=== PATIENT | male | born 1980 | race Two or more races ===

== ENCOUNTER 2018-02-24 22:54 | Inpatient (IN) | payer OTHER ==
[~2018-02-24] VITALS: Ht 172.7 cm; Wt 79.8 kg
[2018-02-24] MEDS ORDERED: TETRACAINE HCL/PF 0.5% UD 2 ML BOTTLE ONE (23:21)
[2018-02-24] MEDS ORDERED: LORAZEPAM INJ 2 MG/ML VIAL IV ONE (23:30)
[2018-02-24] MEDS ORDERED: TETRACAINE HCL/PF 0.5% UD 2 ML BOTTLE LEFTEYE ONE (23:30)
[2018-02-24] MEDS ORDERED: IV NS 0.9% 1,000 ML BAG IV ONE (23:30)
--- NOTE | 2018-02-24 23:30 | NUR ---
ADDENDUM: IV END TIMES: NS 1 LITER WIDE OPEN: START TIME: 2330 PM ;END TIME 0030 (02/25/2018); PIV # 18 LAC KEPPRA 500 MG : START TIME: 0030 (02/25/2018); END TIME 0130 (02/25/2018); PIV # 18 LAC
--- NOTE | 2018-02-24 23:30 | NUR ---
BIBRA39/[employer] FOR OTB C/O WITNESSED SEIZURE LASTING APPROX 30 SEC. NO HX OF SEIZURES. PER RA WITHDRAWAL FROM ETOH. A/O X 4. PT HAS LEFT EYE HEMATOMA AND EYE IS CLOSED. PT PLACED IN BED AND TOLERATED WELL. PT PLACED ON MONITOR WITH VS WNL. PT HAS HANDCUFF ON RIGHT ARM AND [employer] AT BEDSIDE. AWAITING MD MUÑIZ.
[2018-02-24 23:34] LABS: BASOPHILS # (AUTO) 0.1 /CMM (0.0-0.2); MONOCYTES # (AUTO) 0.5 /CMM (0.1-1.30); NEUTROPHILS # (AUTO) 3.3 /CMM (1.8-8.9)
[2018-02-24 23:36] LABS: CALCIUM, SERUM 8.7 mg/dL (8.5-10.1); CREATININE 0.8 mg/dL (0.6-1.3); POTASSIUM 3.9 mmol/L (3.5-5.1)
[2018-02-24] MEDS ORDERED: LORAZEPAM INJ 2 MG/ML VIAL ONE (23:38)
[2018-02-24 23:39] LABS: BASOPHILS % (AUTO) 1.2 % (0.0-2.0); EOSINOPHILS % (AUTO) 0.3 % (0.0-6.0); HEMATOCRIT 33 % (39-51); LYMPHOCYTES # (AUTO) 0.3 /CMM (0.8-4.8); MEAN CORPUSCULAR HGB CONC 30 g/dl (31.0-36.0); MEAN CORPUSCULAR VOLUME 63 fL (80-96); NEUTROPHILS % (AUTO) 79.5 % (43.0-81.0); PLATELET COUNT (AUTO) 101 /CMM (150-450); RED BLOOD CELL COUNT(AUTO) 5.23 MIL/uL (4.5-6.0); WHITE BLOOD COUNT (AUTO) 4.2 K/uL (4.3-11.0)
[2018-02-24] MEDS ORDERED: CT SWABBABLE VALVE TRANS SET 1 EA INFUS.SET MC ONE (23:46)
[2018-02-24] MEDS ORDERED: IV NS 0.9% 250 ML IV ONE (23:46)
[2018-02-24] MEDS ORDERED: IOHEXOL-300 100 ML VIAL IV ONE (23:46)
[2018-02-25] VITALS (11 sets, daily range): BP systolic 110–142; BP diastolic 64–92
[2018-02-25 00:19] LABS: BILIRUBIN,DIRECT 1.5 mg/dL (0.0-0.2)
[2018-02-25 00:20] LABS: ALBUMIN 3.6 g/dL (3.4-5.0); TOTAL PROTEIN, SERUM 7.9 g/dL (6.4-8.2)
[2018-02-25] MEDS ORDERED: IV NS 0.9% 250 ML IV ONE (00:27)
[2018-02-25] MEDS ORDERED: IOHEXOL-350 100 ML VIAL IV ONE (00:27)
[2018-02-25] MEDS ORDERED: LEVETIRACETAM (500MG) 500 MG in IV NS 0.9% 100 ML IV SCH ×2 (00:30→12:30)
[2018-02-25] MEDS ORDERED: LEVETIRACETAM (500MG) 500 MG/5 ML VIAL IV ONE (00:34)
--- NOTE | 2018-02-25 00:38 | NUR ---
PT LEFT FOR CT
[2018-02-25 00:48] LABS: NEUTROPHILS % (MANUAL) 83 (42-76)
[2018-02-25 00:49] LABS: LYMPHOCYTES % (MANUAL) 6 % (16-48); MONOCYTES % (MANUAL) 11 % (0-11.0)
--- NOTE | 2018-02-25 00:49 | NUR ---
PT RETURNED FROM CT.
--- NOTE | 2018-02-25 03:00 | NUR ---
EPIC CABLE INSPECTOR PAGED
--- NOTE | 2018-02-25 03:15 | NUR ---
ADMITTING NOTES RECEIVED PT FROM ER VIA TACO ALCARAZ. ON ROOM AIR, NO SOB NOTED. DENIES ANY PAIN AT THIS TIME. ACCOMPANIED BY [employer], PT IS UNDER CUSTODY OF [employer]. SINUS RHYTHM ON TELEMONITOR. WITH INTACT AND PATENT LEFT AC G18. NOTED HEMATOMA ON L PERIORBITAL. VS TAKEN AND ASSESSMENT DONE. ORIENTED TO ROOM AND USE OF CALL LIGHT. SAFETY MEASURES AND SEIZURE PRECAUTION IN PLACED. CALL LIGHT WITHIN EASY REACH. WILL CONT TO MONITOR PER ENDORSEMENT FROM MARY OROZCO RN, PT RECEIVED 1BAG FFP. 2 BAGS OF PLATELET TO BE INFUSED ONCE AVAILABLE.
[2018-02-25] MEDS ORDERED: ACETAMINOPHEN 325 MG TABLET PO PRN (03:30)
[2018-02-25] MEDS ORDERED: LABETALOL HCL IV 100MG VIAL IV PRN (03:30)
[2018-02-25] MEDS ORDERED: MAG HYDROX/AL HYDROX/SIMETH 30 ML UDC PO PRN (03:30)
[2018-02-25] MEDS ORDERED: MORPHINE SULFATE INJ 2 MG/ML DISP.SYRIN IV PRN (03:30)
[2018-02-25] MEDS ORDERED: ONDANSETRON HCL/PF 4 MG/2 ML VIAL IVP PRN (03:30)
[2018-02-25] MEDS ORDERED: Z GUARD REMEDY 2 OZ OINT TP PRN (03:30)
[2018-02-25] MEDS ORDERED: MAGNESIUM HYDROXIDE 30 ML UDC PO PRN (03:30)
--- NOTE | 2018-02-25 03:30 | NUR ---
RN NOTES CALLED [facility], PAGED SERJIO PRECIADO FOR ADMITTING ORDERS [phone] RECEIVED CALL BACK FROM SERJIO PRECIADO, CLARIFIED IF OK TO GIVE 2 BAGS PLATELETS, PER CORPORATE TREASURY ANALYST, "OK TO GIVE", PT MADE AWARE AND AGREED. ORDERS NOTED AND CARRIED OUT
--- NOTE | 2018-02-25 03:30 | NUR ---
ACCEPTED BY [facility] DR. SERRANO ALSO ACCEPTED THE PATIENT FOR ANNABELLA ADMISSION
[2018-02-25] MEDS ORDERED: LORAZEPAM 1 MG TABLET PO PRN (04:00)
[2018-02-25] MEDS: IV NS 0.9% 1,000 ML IV PRN ×2 (04:04→23:28)
[2018-02-25] MEDS ORDERED: NIMODIPINE (30MG) 30 MG CAPSULE ONE (05:14)
[2018-02-25] MEDS: NIMODIPINE (30MG) 30 MG CAPSULE PO SCH ×6 (05:22→23:28)
[2018-02-25 06:38] LABS: BASOPHILS % (AUTO) 1.1 % (0.0-2.0); HEMATOCRIT 28 % (39-51); HEMOGLOBIN 8.5 g/dL (13.5-17.5); LYMPHOCYTES # (AUTO) 0.5 /CMM (0.8-4.8); LYMPHOCYTES % (AUTO) 14.7 % (20.0-44.0); MEAN CORPUSCULAR HGB CONC 31 g/dl (31.0-36.0); MEAN CORPUSCULAR VOLUME 63 fL (80-96); MONOCYTES # (AUTO) 0.8 /CMM (0.1-1.30); MONOCYTES % (AUTO) 21.9 % (2.0-12.0); NEUTROPHILS # (AUTO) 2.2 /CMM (1.8-8.9); NEUTROPHILS % (AUTO) 62.3 % (43.0-81.0); PLATELET COUNT (AUTO) 86 /CMM (150-450); RED BLOOD CELL COUNT(AUTO) 4.37 MIL/uL (4.5-6.0); WHITE BLOOD COUNT (AUTO) 3.5 K/uL (4.3-11.0)
[2018-02-25 06:52] LABS: ALBUMIN 3.2 g/dL (3.4-5.0); CALCIUM, SERUM 8.4 mg/dL (8.5-10.1); CREATININE 0.6 mg/dL (0.6-1.3); POTASSIUM 3.5 mmol/L (3.5-5.1)
--- NOTE | 2018-02-25 07:05 | NUR ---
RN NOTES RECEIVED PT ON BED, A/Ox4,NO NEUROLOGICAL DEFICIT NOTED EXCEPT L EYE BRUISING AND EDEMA NOTED,LEFT PUPIL SLUGGISH TO REACT. NO SZ ACTIVITIES NOTED ON RA , RESPIRATION EVEN AND UNLABORED, NO SOB NOTED, ON TELE HR IN 90'S , SR ,L AC IV SITE G 18 CLEAN , DRY AND INTACT, WITH NS AT 75CC/HR RUNNING , SR UP x3, CALL LIGHT WITHIN EASY REACH, BED LOCKED AND IN LOWEST POSITION , CONTINUE TO MONITOR ,
--- NOTE | 2018-02-25 07:07 | NUR ---
RN NOTES PT IN STABLE CONDITION. NO ACUTE CHANGES THROUGHOUT SHIFT. NO SEIZURE EPISODE NOTED. SAFETY MEASURES AND SEIZURE PRECAUTION MAINTAINED. ALL NEEDS ANTICIPATED. ENDORSED TO AM SHIFT RN FOR CONCHA
[2018-02-25 08:16] LABS: BAND % (MANUAL) 4 % (0.0-5.0); EOSINOPHILS % (MANUAL) 1 % (0-4); LYMPHOCYTES % (MANUAL) 16 % (16-48); MONOCYTES % (MANUAL) 13 % (0-11.0); NEUTROPHILS % (MANUAL) 66 (42-76)
[2018-02-25] MEDS: DOCUSATE SODIUM 100 MG CAPSULE PO SCH ×2 (08:29→17:08)
[2018-02-25] MEDS: FAMOTIDINE (20 MG) 20 MG TABLET PO SCH (08:29)
[2018-02-25 08:30] LABS: THYROID STIMULATING HORMONE 0.717 uIU/mL (0.358-3.74)
--- NOTE | 2018-02-25 12:00 | NUR ---
RN NOTES PT STABLE , OUT OF THE BED TO BATHROOM AT TIMES VSS STABLE, NO DISTRESS NOTED .
[2018-02-25] MEDS: LEVETIRACETAM (250 MG) 250 MG TABLET PO SCH ×2 (12:49→20:04)
--- NOTE | 2018-02-25 18:20 | NUR ---
RN NOTES PT REMAINS STABLE, NS AT 75CC/HR RUNNING VIA L AC IV SITE , NO SINGICNAT CHANGES NOTED ON THIS SHIFT , WILL ENDOSE TO CROP DUSTER HELPER NURSE FOR CONTINUITY OF CARE
[2018-02-25] MEDS ORDERED: PROTHROMBIN COMPLEX CONCENTR IV ONE (18:30)
[2018-02-25] MEDS ORDERED: WATER FOR INJECTION STERILE IV ONE (18:30)
--- NOTE | 2018-02-25 20:38 | NUR ---
TD RN NOTES RECEIVED PT ON BED. A/O X 4. ON ROOM AIR SATURATING WELL. ON TELE MONITOR SR. IV ACCESS LAC G18 WITH NS @ 75CC/HR, IV ACCESS PATENT AND INTACT. NO SIGNS OF ACTIVE BLEEDING. HEAD OF BED ELEVATED. SIDE RAILS UP. CALL LIGHT WITHIN REACH. BED ALARM ON. WILL CONTINUE TO MONITOR PT CLOSELY.
--- NOTE | 2018-02-25 22:00 | NUR ---
TD RN NOTES PT LIVING ALONE CANT PROVIDE FACTOR 8 MEDICINE. PER PT HE IS LIVING ALONE. CALLED PHARMACY. PER PHARMACY ORDER A AGRICULTURAL RESEARCH TECHNOLOGIST CONSULT.
--- NOTE | 2018-02-25 23:22 | NUR ---
TD RN NOTES PT REFUSED NEUROLOGICAL ASSESSMENT. PER PT HE WANTS TO SLEEP. EXPLAINED RISK AND BENEFITS. PT STILL REFUSED. WILL MONITOR PT CLOSELY.
[2018-02-26] VITALS (7 sets, daily range): BP systolic 115–138; BP diastolic 59–87
--- NOTE | 2018-02-26 00:58 | NUR ---
TD RN NOTES SLIGHT BLEEDING NOTED AT PT IV ACCESS. APPLIED PRESSURE DRESSING AND ICE COMPRESS. BLEEDING CONTROLLED. PRESSURE DRESSING IN PLACED AND INTACT, WILL MONITOR PT BLEEDING CLOSELY.
[2018-02-26] MEDS: NIMODIPINE (30MG) 30 MG CAPSULE PO SCH ×5 (03:36→20:30)
--- NOTE | 2018-02-26 07:00 | NUR ---
RN NOTES RECEIVED PT A/OX4. RESTING COMFORTABLY,ON ROOM AIR, NO SOB NOTED. DENIES ANY PAIN AT THIS TIME. SINUS RHYTHM ON TELE MONITOR WITH INTACT AND PATENT RIGHT AC G22. NS@75CC/HOUR INFUSING , NOTED HEMATOMA ON L PERIORBITAL. V/S TAKEN AND ASSESSMENT DONE. ORIENTED TO ROOM AND USE OF CALL LIGHT. SAFETY MEASURES AND SEIZURE PRECAUTION IN PLACED. CALL LIGHT WITHIN EASY REACH. WILL CONT TO MONITOR.
--- NOTE | 2018-02-26 07:06 | NUR ---
TD RN NOTES NO ACUTE CHANGES NOTED THROUGHOUT THE SHIFT. PROVIDED COMFORT AND SAFETY. DUE MEDS GIVEN. WILL ENDORSE TO THE AM NURSE FOR CONTINUITY OF CARE.
[2018-02-26 07:39] LABS: BASOPHILS # (AUTO) 0.1 /CMM (0.0-0.2); BASOPHILS % (AUTO) 2.3 % (0.0-2.0); EOSINOPHILS % (AUTO) 2.9 % (0.0-6.0); HEMATOCRIT 31 % (39-51); HEMOGLOBIN 9.5 g/dL (13.5-17.5); LYMPHOCYTES # (AUTO) 0.9 /CMM (0.8-4.8); LYMPHOCYTES % (AUTO) 34.1 % (20.0-44.0); MEAN CORPUSCULAR HGB CONC 30 g/dl (31.0-36.0); MEAN CORPUSCULAR VOLUME 64 fL (80-96); MONOCYTES # (AUTO) 0.5 /CMM (0.1-1.30); MONOCYTES % (AUTO) 17.1 % (2.0-12.0); NEUTROPHILS # (AUTO) 1.2 /CMM (1.8-8.9); NEUTROPHILS % (AUTO) 43.6 % (43.0-81.0); PLATELET COUNT (AUTO) 93 /CMM (150-450); RED BLOOD CELL COUNT(AUTO) 4.88 MIL/uL (4.5-6.0); WHITE BLOOD COUNT (AUTO) 2.6 K/uL (4.3-11.0)
[2018-02-26 07:43] LABS: CALCIUM, SERUM 8.1 mg/dL (8.5-10.1); CREATININE 0.6 mg/dL (0.6-1.3); POTASSIUM 3.2 mmol/L (3.5-5.1)
[2018-02-26 07:49] LABS: ALBUMIN 3.1 g/dL (3.4-5.0); BILIRUBIN,DIRECT 1.4 mg/dL (0.0-0.2); BILIRUBIN,TOTAL 3.5 mg/dL (0.2-1.0); MAGNESIUM 1.9 mg/dL (1.8-2.4); PHOSPHORUS 3.1 mg/dL (2.5-4.9); TOTAL PROTEIN, SERUM 6.7 g/dL (6.4-8.2)
[2018-02-26 08:07] LABS: THYROID STIMULATING HORMONE 1.954 uIU/mL (0.358-3.74)
[2018-02-26] MEDS: LEVETIRACETAM (250 MG) 250 MG TABLET PO SCH ×2 (08:26→20:30)
[2018-02-26] MEDS: FOLIC ACID 1 MG TABLET PO SCH (08:26)
[2018-02-26] MEDS: FAMOTIDINE (20 MG) 20 MG TABLET PO SCH (08:26)
[2018-02-26] MEDS: DOCUSATE SODIUM 100 MG CAPSULE PO SCH ×2 (08:26→16:26)
[2018-02-26 09:46] LABS: LYMPHOCYTES % (MANUAL) 27 % (16-48); NEUTROPHILS % (MANUAL) 59 (42-76); REACTIVE LYMPHOCYTES 14 % (0-0)
--- NOTE | 2018-02-26 11:08 | NUR ---
CHARGE NOTES TRANSFER TO TELE PER DR. BURR
[2018-02-26] MEDS: POTASSIUM CHLORIDE 20 MEQ TAB.PRT.SR PO SCH ×2 (11:13→12:30)
--- NOTE | 2018-02-26 13:26 | NUR ---
SW received a social service consult from pharmacy requesting for SW to go to pt's home to get his Factor VIII from home since pt. resides alone. SW spoke to pt's HYACINTH Denise and informed her that it is against protocol for SW to go to pt's home. HYACINTH Denise informed SW that they have reached out to pt's family and left a voicemail message.
[2018-02-26] MEDS ORDERED: K PHOS NEUTRAL 250 MG TABLET PO ONE (13:30)
--- NOTE | 2018-02-26 14:00 | NUR ---
RN NOTES LEFT A MESSAGES FOR PT'S NEPHEW TO BRING PT'S FACTOR 8 INFUSION FROM HOME , NO RETUNE CALL YET , PHARMACY NOTIFED .
--- NOTE | 2018-02-26 18:37 | NUR ---
RN NOTES PT STABLE, NO RETURN CALL FROM FAMILY REGARDING FACTOR 8 IV INFUSION . PT STATED HE HAS IT AT HOME AND DOES HIS OWN INFUSION AT HOME , AND HAS NO ONE TO BRING IT FOR HIM FROM HOME , PHARMACY NOTIFED . SATHISH ENDOSE TO COMPOSITE ENGINEER NURSE FOR CONTINUITY OF CARE .
[2018-02-26] MEDS: IV NS 0.9% 1,000 ML IV PRN (18:41)
[2018-02-27] VITALS (8 sets, daily range): BP systolic 125–140; BP diastolic 74–87
[2018-02-27] MEDS: HYDROCODONE/APAP 5/325MG 1 EACH TABLET PO PRN ×2 (00:15→08:18)
[2018-02-27] MEDS: NIMODIPINE (30MG) 30 MG CAPSULE PO SCH ×5 (00:52→16:50)
[2018-02-27] MEDS: IV NS 0.9% 1,000 ML IV PRN (06:02)
[2018-02-27 07:32] LABS: BASOPHILS # (AUTO) 0.1 /CMM (0.0-0.2); BASOPHILS % (AUTO) 2.5 % (0.0-2.0); EOSINOPHILS % (AUTO) 5.5 % (0.0-6.0); HEMATOCRIT 33 % (39-51); LYMPHOCYTES # (AUTO) 0.8 /CMM (0.8-4.8); LYMPHOCYTES % (AUTO) 29.7 % (20.0-44.0); MEAN CORPUSCULAR HGB CONC 30 g/dl (31.0-36.0); MEAN CORPUSCULAR VOLUME 64 fL (80-96); MONOCYTES # (AUTO) 0.5 /CMM (0.1-1.30); MONOCYTES % (AUTO) 17.7 % (2.0-12.0); NEUTROPHILS # (AUTO) 1.2 /CMM (1.8-8.9); NEUTROPHILS % (AUTO) 44.6 % (43.0-81.0); PLATELET COUNT (AUTO) 78 /CMM (150-450); RED BLOOD CELL COUNT(AUTO) 5.19 MIL/uL (4.5-6.0); WHITE BLOOD COUNT (AUTO) 2.8 K/uL (4.3-11.0)
[2018-02-27 07:51] LABS: CALCIUM, SERUM 8.3 mg/dL (8.5-10.1); CREATININE 0.6 mg/dL (0.6-1.3); POTASSIUM 3.3 mmol/L (3.5-5.1)
[2018-02-27] MEDS: DOCUSATE SODIUM 100 MG CAPSULE PO SCH ×2 (08:17→16:53)
[2018-02-27] MEDS: FAMOTIDINE (20 MG) 20 MG TABLET PO SCH (08:18)
[2018-02-27] MEDS: FOLIC ACID 1 MG TABLET PO SCH (08:18)
[2018-02-27] MEDS: LEVETIRACETAM (250 MG) 250 MG TABLET PO SCH (08:18)
[2018-02-27 08:23] LABS: BASOPHILS % (MANUAL) 1 % (0.0-2.0); EOSINOPHILS % (MANUAL) 6 % (0-4); LYMPHOCYTES % (MANUAL) 27 % (16-48); MONOCYTES % (MANUAL) 20 % (0-11.0); NEUTROPHILS % (MANUAL) 46 (42-76)
[2018-02-27] MEDS ORDERED: POTASSIUM CHLORIDE 20 MEQ TAB.PRT.SR PO ONE (09:30)
[2018-02-27] MEDS: HYDROMORPHONE INJ 0.5 MG/0.5 ML SYRINGE IV PRN ×2 (10:48→17:21)
--- NOTE | 2018-02-27 11:00 | NUR ---
RN NOTE PT'S FAMILY CONTACTED AND REQUESTED TO BRING HIS FACTOR VIII FROM HOME. FAMILY VISITED AND BROUGHT FACTOR 8 AND IT'S BEEN BROUGHT TO PHARMACY.
[2018-02-27 12:10] LABS: *SPE A/G RATIO 0.9 (0.7-1.7); *SPE ALBUMIN 3.1 g/dL (2.9-4.4); *SPE ALPHA-1-GLOBULIN 0.2 g/dL (0.0-0.4); *SPE ALPHA-2-GLOBULIN 0.5 g/dL (0.4-1.0); *SPE BETA GLOBULIN 0.9 g/dL (0.7-1.3); *SPE GLOBULIN, TOTAL 3.3 g/dL (2.2-3.9); *SPE M-SPIKE Not Observed g/dL (Not Observed); *SPEGAMMA GLOBULIN 1.7 g/dL (0.4-1.8); IMMUNOGLOBULIN A, SERUM 287 mg/dL (90-386); IMMUNOGLOBULIN G, SERUM 1706 mg/dL (700-1600); IMMUNOGLOBULIN M, SERUM 231 mg/dL (20-172)
--- NOTE | 2018-02-27 13:47 | NUR ---
SW met with pt. bedside. Pt. is alert and oriented x 4. Pt. was sitting on his bed watching TV. Pt. is friendly and cooperative with SW. Pt's left eye is closed and bruised. SW inquired with pt. as to how he acquired the bruise. Pt. stated he was fixing a car and asked him nephew to give him the tool, however the nephew dropped the tool and it fell on pt's eye. Pt. initially came to [facility] by [employer] due to suffering a seizure in group home. Pt. ended up in group home for a DUI. Once admitted to [facility] pt. was released from custody and has a court date next month. Pt. states he drinks alcohol socially and denies any drugs or marijuana use. Pt. has a diagnosis of Hemophilia and takes factor VIII medication. Pt's medication was at home, however his parents did bring his medication today. Pt. resides with his parents at [address] [place] [address], [address] [place] [address]. Pt's emergency contact is his mother Megan Chanel . Pt. is currently unemployed. No other social service needs are requested at this time. SW is available, if needed.
[2018-02-27] MEDS ORDERED: SOD FERRIC GLUC 125 MG in IV NS 0.9% 100 ML IV SCH (14:00)
[2018-02-27] MEDS ORDERED: [UNRECOGNIZED DRUG - OTHER] IV ONE (17:00)
[2018-02-27] MEDS ORDERED: ANTIHEMOPHILIC FACTOR IV ONE (17:00)
--- NOTE | 2018-02-27 19:15 | NUR ---
RN NOTE PT DISCHARGED HOME IN STABLE CONDITION, AOX4, AMBULATORY, VIA OWN TRANSPORTATION WITH MOTHER TJ, PHONE NUMBER, . DISCHARGE INSTRUCTIONS PROVIDED TO PT, TEACHING DONE, EXIT CARE DONE, PT VERBALIZED UNDERSTANDING, PAPERS SIGNED, PICTURES TAKEN. IV REMOVED, ID BAND REMOVED, MEDICATION GIVEN TO PT, PRESCRIPTION GIVEN TO PT. COPIES LEFT IN THE CHART.
== END 2018-02-27 19:30 | disposition home or self-care (01) | DRG 55 ==
LOC: ER 22:56 → TELE-TD 02-25 02:58 → TELE1 02-26 11:05
PROVIDERS: ADMIT Internal Medicine; ATTEND Nurse Practitioner Acute Care
PROC: 30233R1 Transfusion of Nonautologous Platelets into Peripheral Vein, Percutaneous Approach (ICD-10-PCS; principal; 2018-02-25)
PROC: 30233K1 Transfusion of Nonautologous Frozen Plasma into Peripheral Vein, Percutaneous Approach (ICD-10-PCS; principal; 2018-02-25)
DX: S06.6X0A Traumatic subarachnoid hemorrhage without loss of consciousness, initial encounter (principal); D67 Hereditary factor IX deficiency; D61.818 Other pancytopenia; D69.6 Thrombocytopenia, unspecified; R56.9 Unspecified convulsions; D73.1 Hypersplenism; K76.0 Fatty (change of) liver, not elsewhere classified; D50.9 Iron deficiency anemia, unspecified; D72.819 Decreased white blood cell count, unspecified; Y93.9 Activity, unspecified; S05.12XA Contusion of eyeball and orbital tissues, left eye, initial encounter; Z87.891 Personal history of nicotine dependence; Y08.89XA Assault by other specified means, initial encounter; E87.6 Hypokalemia; V49.9XXA Car occupant (driver) (passenger) injured in unspecified traffic accident, initial encounter; F10.239 Alcohol dependence with withdrawal, unspecified; Y90.0 Blood alcohol level of less than 20 mg/100 ml; Z91.81 History of falling; Y92.9 Unspecified place or not applicable; D47.2 Monoclonal gammopathy
CPT/HCPCS: 36415; 70450-TC; 70496-TC; 76700-TC; 80048-TC; 80053-TC; 80061-TC; 80076-TC; 82728-TC; 82784; 83540-TC; 83735-TC; 84100-TC; 84155; 84165; 84443-TC; 85025-TC; 85240; 85610-TC; 85730-TC; 86334; 86850-TC; 87081-TC; 92611-TC; C9132; G0378; G0480; J1953; J2060; J2916; J3490; J7030; J7050; P9016-BL; P9017-BL; P9034-BL; Q9967